=== PATIENT | male | born 1985 | race Caucasian/White ===

== ENCOUNTER 2017-07-19 11:29 | Inpatient (IN) | payer OTHER ==
[~2017-07-19] VITALS: Ht 175.3 cm; Wt 60.9 kg
[2017-07-19 12:44] LABS: CHLORIDE 96 mEq/L (99-109); POTASSIUM 4.3 mEq/L (3.7-5.4); SODIUM 135 mEq/L (136-147)
[2017-07-19 12:46] LABS: HEMATOCRIT 51.4 % (38.0-50.0); HEMOGLOBIN 18.8 G/DL (12.5-16.6); MCH 29.6 PG (29.0-34.0); MCHC 36.6 G/DL (30.0-36.0); MCV 80.9 FL (86-99); PLATELET COUNT 323 K/uL (156-360); RBC DIS.WIDTH-CV 12.8 % (11.8-14.6); RBC DIS.WIDTH-SD 36.7 % (39-53); RED BLOOD COUNT 6.35 M/uL (4.00-5.50); TOTAL PROTEIN 8.8 g/dL (6.4-8.3); WHITE BLOOD COUNT 17.5 K/uL (4.1-10.2)
[2017-07-19 12:48] LABS: TOTAL BILIRUBIN 1.5 mg/dL (0.0-1.0)
[2017-07-19 12:49] LABS: ALKALINE PHOSPHATASE 110 IU/L (3-129)
[2017-07-19 12:50] LABS: CREATININE 1.7 mg/dL (0.6-1.3); GFR ESTIMATE (CALCULATED) 51 mL/min/ (58.99-99999)
[2017-07-19 12:51] LABS: AST (GOT) 13 IU/L (2-34); UREA NITROGEN (BUN) 27 mg/dL (9-23)
[2017-07-19 12:53] LABS: ALT (GPT) 18 IU/L (3-49); LIPASE 20 U/L (1.0-51.0)
[2017-07-19 13:01] LABS: GLUCOSE 708 mg/dL (70-99)
[2017-07-19 13:11] LABS: APPEARANCE CLEAR ((CLEAR)); BILIRUBIN NEGATIVE; BLOOD NEGATIVE; COLOR STRAW ((YELLOW)); GLUCOSE (STRIP) >=500; KETONES 80; LEUKOCYTES NEGATIVE; NITRITE NEGATIVE; PROTEIN (STRIP) NEGATIVE; SPECIFIC GRAVITY 1.036 (1.000-1.030); UCUL ADDED? NO; UROBILINOGEN 0.2 MG/DL (0.2-1.0)
[2017-07-19 14:05] LABS: PHOSPHORUS 4.6 mg/dL (2.5-4.9)
[2017-07-19 14:06] LABS: CARBON DIOXIDE (BICARBONATE) 21.4 MEQ/L (20-31)
[2017-07-19 23:45] VITALS: BP 132/76
[2017-07-20] VITALS (21 sets, daily range): BP systolic 104–139; BP diastolic 56–94
[2017-07-20 01:05] LABS: POTASSIUM 3.8 mEq/L (3.7-5.4)
[2017-07-20 01:06] LABS: MAGNESIUM 2.3 mg/dL (1.3-2.7)
[2017-07-20 01:11] LABS: PHOSPHORUS 3.2 mg/dL (2.5-4.9)
[2017-07-20 01:12] LABS: UREA NITROGEN (BUN) 18 mg/dL (9-23)
[2017-07-20 01:16] LABS: CHLORIDE 112 mEq/L (99-109); GFR ESTIMATE (CALCULATED) > 59 mL/min/ (58.99-99999); GLUCOSE 127 mg/dL (70-99); SODIUM 145 mEq/L (136-147)
[2017-07-20 06:16] LABS: CHLORIDE 106 MEQ/L (99-109); CREATININE 0.8 MG/DL (0.6-1.3); GFR ESTIMATE (CALCULATED) > 59 mL/min/ (58.99-99999); MAGNESIUM 2.1 mg/dl (1.3-2.7); POTASSIUM 3.6 MEQ/L (3.7-5.4); SODIUM 143 MEQ/L (136-147); UREA NITROGEN (BUN) 19 mg/dL (9-23)
[2017-07-20 06:23] LABS: GLUCOSE 213 mg/dL (70-99)
[2017-07-20 08:58] LABS: CHLORIDE 106 MEQ/L (99-109); CREATININE 0.8 MG/DL (0.6-1.3); GFR ESTIMATE (CALCULATED) > 59 mL/min/ (58.99-99999); GLUCOSE 126 mg/dL (70-99); MAGNESIUM 2.1 mg/dl (1.3-2.7); POTASSIUM 3.7 MEQ/L (3.7-5.4); SODIUM 142 MEQ/L (136-147); UREA NITROGEN (BUN) 17 mg/dL (9-23)
[2017-07-20 10:24] LABS: HEMOGLOBIN A1c (GLYCOHEMOGLOB) 11.7 % (Below 5.7)
[2017-07-20 13:53] LABS: CHLORIDE 103 MEQ/L (99-109); CREATININE 0.7 MG/DL (0.6-1.3); GFR ESTIMATE (CALCULATED) > 59 mL/min/ (58.99-99999); GLUCOSE 179 mg/dL (70-99); MAGNESIUM 1.9 mg/dl (1.3-2.7); POTASSIUM 3.3 MEQ/L (3.7-5.4); SODIUM 140 MEQ/L (136-147); UREA NITROGEN (BUN) 14 mg/dL (9-23)
[2017-07-20 15:06] LABS: THYROTROPIN (TSH) 0.83 MIU/L (0.4-5.5)
[2017-07-21 01:45] VITALS: BP 129/79
[2017-07-21 04:47] VITALS: BP 134/80
[2017-07-21 07:25] VITALS: BP 120/74
[2017-07-21 11:06] VITALS: BP 133/77
[2017-07-21 11:52] LABS: CHLORIDE 96 MEQ/L (99-109); CREATININE 0.6 MG/DL (0.6-1.3); GFR ESTIMATE (CALCULATED) > 59 mL/min/ (58.99-99999); GLUCOSE 141 mg/dL (70-99); POTASSIUM 3.7 MEQ/L (3.7-5.4); SODIUM 133 MEQ/L (136-147); UREA NITROGEN (BUN) 12 mg/dL (9-23)
[2017-07-21 12:04] LABS: BASOPHIL (%) 0.1 % (0-1); EOSINOPHIL (%) 0 % (0-5); HEMATOCRIT 42.7 % (38.0-50.0); HEMOGLOBIN 15.2 G/DL (12.5-16.6); IMMATURE GRANULOCYTE (%) 0.2 % (0.0-0.7); LYMPHOCYTE (%) 27.7 % (15-42); LYMPHOCYTE COUNT 2.6 K/uL (1.0-2.8); MCH 28.9 PG (29.0-34.0); MCHC 35.6 G/DL (30.0-36.0); MCV 81.2 FL (86-99); MONOCYTE (%) 8.1 % (3-12); MONOCYTE COUNT 0.8 K/uL (0-0.8); NEUTROPHIL (%) 63.9 % (45-76); NEUTROPHIL COUNT 6.1 K/uL (1.8-6.4); RBC DIS.WIDTH-CV 11.9 % (11.8-14.6); RBC DIS.WIDTH-SD 35.3 % (39-53); RED BLOOD COUNT 5.26 M/uL (4.00-5.50); WHITE BLOOD COUNT 9.5 K/uL (4.1-10.2)
[2017-07-21 12:10] LABS: PLAT.SUFFICIENCY ADEQUATE
[2017-07-21 12:22] LABS: PLATELET COUNT 216 K/uL (156-360)
[2017-07-21 13:33] LABS: ALBUMIN 3.7 G/DL (3.2-4.8); ALKALINE PHOSPHATASE 72 IU/L (3-129); ALT (GPT) 12 IU/L (3-49); AST (GOT) 17 IU/L (2-34); DIRECT BILIRUBIN 0.4 mg/dL (0.0-0.3); LIPASE 16 U/L (1.0-51.0); TOTAL BILIRUBIN 2.7 MG/DL (0.0-1.0); TOTAL PROTEIN 6.1 G/DL (6.4-8.3)
[2017-07-21 15:40] VITALS: BP 125/77
[2017-07-21 19:30] VITALS: BP 111/63
[2017-07-22 00:54] VITALS: BP 108/57
[2017-07-22 03:32] VITALS: BP 108/66
[2017-07-22 07:19] LABS: ALBUMIN 3.5 G/DL (3.2-4.8); ALKALINE PHOSPHATASE 69 IU/L (3-129); ALT (GPT) 11 IU/L (3-49); AST (GOT) 14 IU/L (2-34); CHLORIDE 99 MEQ/L (99-109); CREATININE 0.7 MG/DL (0.6-1.3); GFR ESTIMATE (CALCULATED) > 59 mL/min/ (58.99-99999); GLUCOSE 123 mg/dL (70-99); POTASSIUM 3.3 MEQ/L (3.7-5.4); SODIUM 138 MEQ/L (136-147); UREA NITROGEN (BUN) 14 mg/dL (9-23)
[2017-07-22 07:31] VITALS: BP 120/66
[2017-07-22 10:02] LABS: HDL CHOLESTEROL 40 MG/DL (Desirable>=40); LDL CHOLESTEROL 98 mg/dL (Desirable<100); NON-HDL CHOLESTEROL 109 mg/dL (Desirable<160); TOTAL CHOLESTEROL 149 mg/dL (Desirable<200); TRIGLYCERIDES 53 MG/DL (Normal: <150)
[2017-07-22 15:33] VITALS: BP 99/61
[2017-07-22 23:25] VITALS: BP 110/68
[2017-07-23 07:59] LABS: ALBUMIN 3.6 G/DL (3.2-4.8); ALKALINE PHOSPHATASE 70 IU/L (3-129); ALT (GPT) 12 IU/L (3-49); AST (GOT) 14 IU/L (2-34); CHLORIDE 98 MEQ/L (99-109); CREATININE 0.8 MG/DL (0.6-1.3); GFR ESTIMATE (CALCULATED) > 59 mL/min/ (58.99-99999); GLUCOSE 107 mg/dL (70-99); SODIUM 137 MEQ/L (136-147); TOTAL PROTEIN 6.3 G/DL (6.4-8.3); UREA NITROGEN (BUN) 12 mg/dL (9-23)
[2017-07-23 08:01] LABS: TOTAL BILIRUBIN 1.3 MG/DL (0.0-1.0)
[2017-07-23 09:13] VITALS: BP 104/60
[2017-07-23 17:30] VITALS: BP 113/63
[2017-07-23 23:57] VITALS: BP 114/67
[2017-07-24 07:53] VITALS: BP 117/59
[2017-07-24 16:39] VITALS: BP 109/57
[2017-07-25 00:01] VITALS: BP 104/65
[2017-07-25 07:26] VITALS: BP 100/59
[2017-07-25] MEDS ORDERED: EASY TOUCH HYP1 EA10 MC (10:28)
[2017-07-25] MEDS ORDERED: NOVOLOG MI100 UNIT/3 SC (10:28)
== END 2017-07-25 13:55 | disposition home or self-care (01) | DRG 638 ==
LOC: EME 11:29 → 4WEST 16:34 → EDOF 16:34 → 5SOUTH 16:34 → ENRESERV 16:35 → 4WEST 23:37 → ENRESERV 07-20 15:59 → 4WEST 07-20 16:49 → 5SOUTH 07-20 19:30 → ENPENDDIS 07-25 12:12 → 5SOUTH 07-25 13:55
PROVIDERS: Emergency Medicine; Hospitalist; Internal Medicine; Physician Assistant
DX: E10.10 Type 1 diabetes mellitus with ketoacidosis without coma (principal); R17 Unspecified jaundice; Z68.1 Body mass index [BMI] 19.9 or less, adult; F43.23 Adjustment disorder with mixed anxiety and depressed mood; F60.1 Schizoid personality disorder; Z56.0 Unemployment, unspecified; R63.6 Underweight; Z79.4 Long term (current) use of insulin
CPT/HCPCS: 76700; 80048; 80048 91; 80053; 80061; 80076; 81003; 82010; 82803; 82948; 83036; 83690; 83735; 84100; 84443; 85025; 85027; 87502; 87641; 90686; 93005; 99281; 99285; J1815; J2405; J3480; J7030; J7050

== ENCOUNTER 2017-10-06 09:23 | Emergency (ER) | payer OTHER ==
[~2017-10-06] VITALS: Ht 175.3 cm; Wt 65.5 kg
[~2017-10-06 09:23] MED LIST: EASY TOUCH HYP1 EA10 MC; NOVOLOG MI100 UNIT/3 SC
[2017-10-06 10:18] LABS: CARBON DIOXIDE (BICARBONATE) 29.8 MEQ/L (20-31)
[2017-10-06 10:20] LABS: HEMATOCRIT 46.2 % (38.0-50.0); HEMOGLOBIN 16.6 G/DL (12.5-16.6); MCH 30.2 PG (29.0-34.0); MCHC 35.9 G/DL (30.0-36.0); PLATELET COUNT 232 K/uL (156-360); RBC DIS.WIDTH-CV 12.4 % (11.8-14.6); RBC DIS.WIDTH-SD 37.8 % (39-53); WHITE BLOOD COUNT 9.9 K/uL (4.1-10.2)
[2017-10-06 10:29] LABS: ALBUMIN 4.8 g/dL (3.2-4.8); CHLORIDE 101 mEq/L (99-109); POTASSIUM 4.5 mEq/L (3.7-5.4); SODIUM 139 mEq/L (136-147)
[2017-10-06 10:31] LABS: GLUCOSE 202 mg/dL (70-99)
[2017-10-06 10:32] LABS: TOTAL PROTEIN 7.8 g/dL (6.4-8.3)
[2017-10-06 10:33] LABS: TOTAL BILIRUBIN 1.2 mg/dL (0.0-1.0)
[2017-10-06 10:35] LABS: ALKALINE PHOSPHATASE 77 IU/L (3-129); CREATININE 0.9 mg/dL (0.6-1.3); GFR ESTIMATE (CALCULATED) > 59 mL/min/ (58.99-99999)
[2017-10-06 10:36] LABS: UREA NITROGEN (BUN) 13 mg/dL (9-23)
[2017-10-06 10:37] LABS: AST (GOT) 17 IU/L (2-34)
[2017-10-06 10:38] LABS: ALT (GPT) 16 IU/L (3-49); LIPASE 9 U/L (1.0-51.0)
[2017-10-06 11:44] LABS: APPEARANCE CLEAR ((CLEAR)); BILIRUBIN NEGATIVE; BLOOD NEGATIVE; COLOR YELLOW ((YELLOW)); GLUCOSE (STRIP) NEGATIVE; KETONES 80; LEUKOCYTES NEGATIVE; NITRITE NEGATIVE; PROTEIN (STRIP) 30; SPECIFIC GRAVITY 1.026 (1.000-1.030); UROBILINOGEN 0.2 MG/DL (0.2-1.0)
[2017-10-06] MEDS ORDERED: ZOFRAN ODT4 MG PO (13:05)
[2017-10-06 14:33] VITALS: BP 120/72
== END 2017-10-06 14:34 | disposition home or self-care (01) ==
LOC: EME 09:23
PROVIDERS: Nurse Practitioner Family
DX: R11.2 Nausea with vomiting, unspecified (principal); R19.7 Diarrhea, unspecified; E11.65 Type 2 diabetes mellitus with hyperglycemia; Z79.4 Long term (current) use of insulin
CPT/HCPCS: 80053; 81003; 82803; 82948; 83690; 85027; 99281; 99285; J2405; J7030

== ENCOUNTER 2017-10-11 00:35 | Emergency (ER) | payer OTHER ==
[~2017-10-11] VITALS: Ht 175.3 cm; Wt 63.9 kg
[~2017-10-11 00:35] MED LIST changes: +ZOFRAN ODT4 MG PO
[2017-10-11 01:24] LABS: HEMATOCRIT 45.1 % (38.0-50.0); HEMOGLOBIN 16.6 G/DL (12.5-16.6); MCH 30.4 PG (29.0-34.0); MCHC 36.8 G/DL (30.0-36.0); MCV 82.6 FL (86-99); PLATELET COUNT 278 K/uL (156-360); RBC DIS.WIDTH-SD 36.2 % (39-53); RED BLOOD COUNT 5.46 M/uL (4.00-5.50); WHITE BLOOD COUNT 9.7 K/uL (4.1-10.2)
[2017-10-11 01:36] LABS: ALBUMIN 4.5 g/dL (3.2-4.8); CHLORIDE 99 mEq/L (99-109); SODIUM 140 mEq/L (136-147)
[2017-10-11 01:37] LABS: POTASSIUM 3.5 mEq/L (3.7-5.4)
[2017-10-11 01:38] LABS: GLUCOSE 130 mg/dL (70-99); TOTAL PROTEIN 7.6 g/dL (6.4-8.3)
[2017-10-11 01:40] LABS: TOTAL BILIRUBIN 1.4 mg/dL (0.0-1.0)
[2017-10-11 01:42] LABS: ALKALINE PHOSPHATASE 68 IU/L (3-129); GFR ESTIMATE (CALCULATED) > 59 mL/min/ (58.99-99999)
[2017-10-11 01:43] LABS: AST (GOT) 15 IU/L (2-34); UREA NITROGEN (BUN) 11 mg/dL (9-23)
[2017-10-11 01:44] LABS: DIRECT BILIRUBIN 0.6 mg/dL (0.0-0.3)
[2017-10-11 01:45] LABS: ALT (GPT) 11 IU/L (3-49); LIPASE 20 U/L (1.0-51.0)
[2017-10-11 04:04] LABS: BASE EXCESS 1.3 mEq/L (-3 to +3); BICARBONATE 25.9 mEq/L (22-26); CARBOXY HGB 1.6 % (0-5); PCO2 40 mm Hg (35-45); PO2 96 mm Hg (80-100); pH 7.42 (7.35-7.45)
[2017-10-11 04:06] LABS: COMMENTS - BLOOD GASES C+A+; DEVICE ROOM AIR; FI02 21 %; SITE RR
[2017-10-11 04:32] VITALS: BP 111/77
== END 2017-10-11 04:33 | disposition home or self-care (01) ==
LOC: EME 00:35
PROVIDERS: Emergency Medicine; Physician Assistant
DX: K52.9 Noninfective gastroenteritis and colitis, unspecified (principal); E86.0 Dehydration; K59.00 Constipation, unspecified; E11.9 Type 2 diabetes mellitus without complications; Z79.84 Long term (current) use of oral hypoglycemic drugs
CPT/HCPCS: 36600; 80048; 80076; 81003; 82803; 83690; 85027; 99281; 99284; J2405; J2550; J7030

== ENCOUNTER 2017-10-12 21:05 | Emergency (ER) | payer OTHER ==
[~2017-10-12] VITALS: Ht 175.3 cm; Wt 63.2 kg
[2017-10-12 21:48] LABS: HEMATOCRIT 45.2 % (38.0-50.0); HEMOGLOBIN 16.7 G/DL (12.5-16.6); MCH 30.5 PG (29.0-34.0); MCHC 36.9 G/DL (30.0-36.0); MCV 82.5 FL (86-99); PLATELET COUNT 286 K/uL (156-360); RBC DIS.WIDTH-CV 11.9 % (11.8-14.6); RBC DIS.WIDTH-SD 35.8 % (39-53); RED BLOOD COUNT 5.48 M/uL (4.00-5.50); WHITE BLOOD COUNT 10.4 K/uL (4.1-10.2)
[2017-10-12 21:53] LABS: CHLORIDE 98 mEq/L (99-109); POTASSIUM 3.1 mEq/L (3.7-5.4); SODIUM 139 mEq/L (136-147)
[2017-10-12 21:55] LABS: GLUCOSE 136 mg/dL (70-99)
[2017-10-12 21:59] LABS: CREATININE 0.9 mg/dL (0.6-1.3); GFR ESTIMATE (CALCULATED) > 59 mL/min/ (58.99-99999)
[2017-10-12 22:00] LABS: UREA NITROGEN (BUN) 10 mg/dL (9-23)
[2017-10-12 23:20] LABS: LIPASE 36 U/L (1.0-51.0)
[2017-10-13] MEDS ORDERED: REGLAN10 MG PO (00:10)
[2017-10-13 01:08] VITALS: BP 118/83
== END 2017-10-13 01:09 | disposition home or self-care (01) ==
LOC: EME 21:05
DX: R11.2 Nausea with vomiting, unspecified (principal); R10.9 Unspecified abdominal pain; E87.6 Hypokalemia; E11.9 Type 2 diabetes mellitus without complications; Z79.4 Long term (current) use of insulin
CPT/HCPCS: 74177; 80048; 81003; 83690; 85027; 99281; 99284; J2405; J2765; J7030

== ENCOUNTER 2017-10-15 00:07 | Inpatient (IN) | payer OTHER ==
[~2017-10-15] VITALS: Ht 175.3 cm; Wt 56.6 kg
[~2017-10-15 00:07] MED LIST changes: +REGLAN10 MG PO
[2017-10-15 00:52] LABS: CARBON DIOXIDE (BICARBONATE) 31.1 MEQ/L (20-31)
[2017-10-15 00:59] LABS: ALBUMIN 4.6 g/dL (3.2-4.8); CHLORIDE 99 mEq/L (99-109); POTASSIUM 3.4 mEq/L (3.7-5.4); SODIUM 138 mEq/L (136-147)
[2017-10-15 01:00] LABS: MAGNESIUM 2.1 mg/dL (1.3-2.7)
[2017-10-15 01:01] LABS: HEMATOCRIT 44.2 % (38.0-50.0); HEMOGLOBIN 16.4 G/DL (12.5-16.6); MCH 30.5 PG (29.0-34.0); MCHC 37.1 G/DL (30.0-36.0); MCV 82.2 FL (86-99); PLATELET COUNT 267 K/uL (156-360); RBC DIS.WIDTH-SD 36.1 % (39-53); RED BLOOD COUNT 5.38 M/uL (4.00-5.50); WHITE BLOOD COUNT 10.4 K/uL (4.1-10.2)
[2017-10-15 01:02] LABS: GLUCOSE 113 mg/dL (70-99); TOTAL PROTEIN 7.7 g/dL (6.4-8.3)
[2017-10-15 01:03] LABS: TOTAL BILIRUBIN 1.5 mg/dL (0.0-1.0)
[2017-10-15 01:04] LABS: SERUM ETHYL ALCOHOL < 10 mg/dL
[2017-10-15 01:05] LABS: ALKALINE PHOSPHATASE 66 IU/L (3-129); CREATININE 0.9 mg/dL (0.6-1.3); GFR ESTIMATE (CALCULATED) > 59 mL/min/ (58.99-99999); PHOSPHORUS 2.7 mg/dL (2.5-4.9)
[2017-10-15 01:06] LABS: UREA NITROGEN (BUN) 10 mg/dL (9-23)
[2017-10-15 01:07] LABS: AST (GOT) 18 IU/L (2-34)
[2017-10-15 01:08] LABS: ALT (GPT) 13 IU/L (3-49)
[2017-10-15 01:09] LABS: LIPASE 22 U/L (1.0-51.0)
[2017-10-15] MEDS ORDERED: HUMALOG MI100 UNIT/6 SC (01:30)
[2017-10-15 02:12] LABS: APPEARANCE CLEAR ((CLEAR)); BILIRUBIN NEGATIVE; BLOOD NEGATIVE; COLOR YELLOW ((YELLOW)); GLUCOSE (STRIP) NEGATIVE; KETONES 20; LEUKOCYTES NEGATIVE; NITRITE NEGATIVE; PROTEIN (STRIP) NEGATIVE; SPECIFIC GRAVITY 1.012 (1.000-1.030); UCUL ADDED? NO
[2017-10-15 02:22] LABS: AMPHETAMINE NEGATIVE (500 ng/mL); BARBITURATES NEGATIVE (200 ng/mL); BENZODIAZEPINES NEGATIVE (150 ng/mL); BUPRENORPHINE NEGATIVE (10 ng/mL); COCAINE NEGATIVE (150 ng/mL); METHADONE NEGATIVE (200 ng/mL); METHAMPHETAMINE NEGATIVE (500 ng/mL); OPIATES (MORPHINE) NEGATIVE (100 ng/mL); OXYCODONE NEGATIVE (100 ng/mL); PHENCYCLIDINE NEGATIVE (25 ng/mL); PROPOXYPHENE NEGATIVE (300 ng/mL); THC CANNABINOIDS NEGATIVE (50 ng/mL); TRICYCLIC ANTIDEPRESSANTS NEGATIVE (300 ng/mL)
[2017-10-15 03:00] VITALS: BP 128/70
[2017-10-15 07:52] VITALS: BP 121/69
[2017-10-15 11:44] VITALS: BP 127/87
[2017-10-15 16:31] VITALS: BP 131/67
[2017-10-15 19:00] VITALS: BP 121/70
[2017-10-16 03:00] VITALS: BP 107/64
[2017-10-16 06:05] LABS: BASOPHIL (%) 0.8 % (0-1); BASOPHIL COUNT 0.1 K/uL (0-0.1); EOSINOPHIL COUNT 0.1 K/uL (0-0.3); HEMATOCRIT 42.9 % (38.0-50.0); HEMOGLOBIN 15.2 G/DL (12.5-16.6); IMMATURE GRANULOCYTE (%) 0.1 % (0.0-0.7); LYMPHOCYTE (%) 46.6 % (15-42); LYMPHOCYTE COUNT 3.6 K/uL (1.0-2.8); MCH 29.2 PG (29.0-34.0); MCHC 35.4 G/DL (30.0-36.0); MCV 82.5 FL (86-99); MONOCYTE (%) 8.5 % (3-12); MONOCYTE COUNT 0.7 K/uL (0-0.8); NEUTROPHIL COUNT 3.3 K/uL (1.8-6.4); PLATELET COUNT 240 K/uL (156-360); RBC DIS.WIDTH-SD 36.5 % (39-53); WHITE BLOOD COUNT 7.8 K/uL (4.1-10.2)
[2017-10-16 06:27] LABS: CHLORIDE 102 MEQ/L (99-109); CREATININE 0.8 MG/DL (0.6-1.3); GFR ESTIMATE (CALCULATED) > 59 mL/min/ (58.99-99999); POTASSIUM 3.1 MEQ/L (3.7-5.4); SODIUM 141 MEQ/L (136-147); UREA NITROGEN (BUN) 5 mg/dL (9-23)
[2017-10-16 06:29] LABS: GLUCOSE 81 mg/dL (70-99)
[2017-10-16 08:19] VITALS: BP 110/67
[2017-10-16 11:55] VITALS: BP 114/62
[2017-10-16] MEDS ORDERED: REGLAN10 MG PO (14:56)
== END 2017-10-16 15:40 | disposition home or self-care (01) | DRG 74 ==
LOC: EME 00:07 → EDOF 01:59 → ENRESERV 01:59 → 5WEST 02:54 → ENPENDDIS 10-16 → 5WEST 10-16 15:40
PROVIDERS: Emergency Medicine; Hospitalist; Internal Medicine
DX: E10.43 Type 1 diabetes mellitus with diabetic autonomic (poly)neuropathy (principal); K31.84 Gastroparesis; R11.2 Nausea with vomiting, unspecified; T38.3X5A Adverse effect of insulin and oral hypoglycemic [antidiabetic] drugs, initial encounter; E87.6 Hypokalemia; F43.20 Adjustment disorder, unspecified; Z79.4 Long term (current) use of insulin; Z83.3 Family history of diabetes mellitus
CPT/HCPCS: 74177; 80048; 80053; 81003; 82803; 82948; 83605; 83690; 83735; 84100; 85025; 85027; 87493; 99281; 99284; 99285; G0480; J0780; J1815; J2405; J2765; J7030; J7120; S0028

== ENCOUNTER 2017-10-17 19:52 | Emergency (ER) | payer OTHER ==
[~2017-10-17] VITALS: Ht 175.3 cm; Wt 62.7 kg
[~2017-10-17 19:52] MED LIST changes: +HUMALOG MI100 UNIT/6 SC
[2017-10-17 20:30] LABS: HEMATOCRIT 46.4 % (38.0-50.0); MCHC 36.6 G/DL (30.0-36.0); MCV 81.8 FL (86-99); PLATELET COUNT 284 K/uL (156-360); RBC DIS.WIDTH-CV 12.1 % (11.8-14.6); RBC DIS.WIDTH-SD 36.4 % (39-53); RED BLOOD COUNT 5.67 M/uL (4.00-5.50); WHITE BLOOD COUNT 8.4 K/uL (4.1-10.2)
[2017-10-17 20:34] LABS: ALBUMIN 4.7 g/dL (3.2-4.8)
[2017-10-17 20:35] LABS: CHLORIDE 101 mEq/L (99-109); POTASSIUM 3.5 mEq/L (3.7-5.4); SODIUM 141 mEq/L (136-147)
[2017-10-17 20:37] LABS: TOTAL PROTEIN 7.8 g/dL (6.4-8.3)
[2017-10-17 20:39] LABS: TOTAL BILIRUBIN 1.4 mg/dL (0.0-1.0)
[2017-10-17 20:40] LABS: ALKALINE PHOSPHATASE 67 IU/L (3-129)
[2017-10-17 20:41] LABS: CREATININE 0.9 mg/dL (0.6-1.3); GFR ESTIMATE (CALCULATED) > 59 mL/min/ (58.99-99999)
[2017-10-17 20:42] LABS: AST (GOT) 19 IU/L (2-34); UREA NITROGEN (BUN) 5 mg/dL (9-23)
[2017-10-17 20:43] LABS: ALT (GPT) 14 IU/L (3-49)
[2017-10-17 20:45] LABS: GLUCOSE 147 mg/dL (70-99)
[2017-10-17 22:52] LABS: CARBON DIOXIDE (BICARBONATE) 29.3 MEQ/L (20-31)
[2017-10-18 00:05] LABS: APPEARANCE SL.HAZY ((CLEAR)); BILIRUBIN NEGATIVE; BLOOD NEGATIVE; COLOR YELLOW ((YELLOW)); GLUCOSE (STRIP) NEGATIVE; KETONES 80; LEUKOCYTES NEGATIVE; NITRITE NEGATIVE; PROTEIN (STRIP) NEGATIVE; SPECIFIC GRAVITY 1.018 (1.000-1.030)
[2017-10-18 00:18] LABS: BACTERIA RARE /HPF; EPITHELIAL CELLS NONE SEEN /HPF; MUCUS 4+ /LPF; RED BLOOD CELLS 0-5 /HPF (0-5); UCUL ADDED? NO; WHITE BLOOD CELLS 0-5 /HPF (0-5)
[2017-10-18] MEDS ORDERED: PHENERGAN25 MG PR (00:38)
[2017-10-18 00:43] VITALS: BP 112/68
== END 2017-10-18 00:45 | disposition home or self-care (01) ==
LOC: EME 19:52
PROVIDERS: Emergency Medicine
DX: R11.2 Nausea with vomiting, unspecified (principal); E11.9 Type 2 diabetes mellitus without complications; E86.0 Dehydration; Z79.4 Long term (current) use of insulin; Z91.14 Patient's other noncompliance with medication regimen
CPT/HCPCS: 80053; 81003; 82010; 82803; 82948; 85027; 99281; 99285; J2765; J7030

== ENCOUNTER 2017-10-20 16:13 | Emergency (ER) | payer OTHER ==
[~2017-10-20] VITALS: Ht 175.3 cm; Wt 60.9 kg
[~2017-10-20 16:13] MED LIST changes: +PHENERGAN25 MG PR
[2017-10-20 18:23] LABS: CARBON DIOXIDE (BICARBONATE) 30.6 MEQ/L (20-31); HEMATOCRIT 47.3 % (38.0-50.0); HEMOGLOBIN 17.4 G/DL (12.5-16.6); MCH 30.2 PG (29.0-34.0); MCHC 36.8 G/DL (30.0-36.0); MCV 82.1 FL (86-99); PLATELET COUNT 268 K/uL (156-360); RBC DIS.WIDTH-CV 12.2 % (11.8-14.6); RBC DIS.WIDTH-SD 36.4 % (39-53); RED BLOOD COUNT 5.76 M/uL (4.00-5.50); WHITE BLOOD COUNT 9.1 K/uL (4.1-10.2)
[2017-10-20 18:26] LABS: ALBUMIN 4.5 g/dL (3.2-4.8); CHLORIDE 103 mEq/L (99-109); MAGNESIUM 2.3 mg/dL (1.3-2.7); POTASSIUM 3.6 mEq/L (3.7-5.4); SODIUM 140 mEq/L (136-147)
[2017-10-20 18:28] LABS: GLUCOSE 118 mg/dL (70-99); TOTAL PROTEIN 7.7 g/dL (6.4-8.3)
[2017-10-20 18:32] LABS: ALKALINE PHOSPHATASE 72 IU/L (3-129); CREATININE 0.8 mg/dL (0.6-1.3); GFR ESTIMATE (CALCULATED) > 59 mL/min/ (58.99-99999)
[2017-10-20 18:33] LABS: UREA NITROGEN (BUN) 6 mg/dL (9-23)
[2017-10-20 18:34] LABS: AST (GOT) 13 IU/L (2-34)
[2017-10-20 18:35] LABS: ALT (GPT) 13 IU/L (3-49); LIPASE 18 U/L (1.0-51.0)
[2017-10-20 18:40] LABS: PHOSPHORUS 3.8 mg/dL (2.5-4.9); TOTAL BILIRUBIN 1.1 mg/dL (0.0-1.0)
[2017-10-20 19:51] LABS: APPEARANCE SL.HAZY ((CLEAR)); BILIRUBIN NEGATIVE; BLOOD NEGATIVE; COLOR YELLOW ((YELLOW)); GLUCOSE (STRIP) NEGATIVE; KETONES 20; LEUKOCYTES NEGATIVE; NITRITE NEGATIVE; PROTEIN (STRIP) 30; SPECIFIC GRAVITY 1.016 (1.000-1.030)
[2017-10-20 19:59] LABS: BACTERIA RARE /HPF; EPITHELIAL CELLS NONE SEEN /HPF; HYALINE CASTS 0-5 /LPF; MUCUS 3+ /LPF; RED BLOOD CELLS 0-5 /HPF (0-5); WHITE BLOOD CELLS 0-5 /HPF (0-5)
[2017-10-20 20:28] LABS: AMPHETAMINE NEGATIVE (500 ng/mL); BARBITURATES NEGATIVE (200 ng/mL); BENZODIAZEPINES NEGATIVE (150 ng/mL); BUPRENORPHINE NEGATIVE (10 ng/mL); COCAINE NEGATIVE (150 ng/mL); METHADONE NEGATIVE (200 ng/mL); METHAMPHETAMINE NEGATIVE (500 ng/mL); OPIATES (MORPHINE) NEGATIVE (100 ng/mL); OXYCODONE NEGATIVE (100 ng/mL); PHENCYCLIDINE NEGATIVE (25 ng/mL); PROPOXYPHENE NEGATIVE (300 ng/mL); THC CANNABINOIDS NEGATIVE (50 ng/mL); TRICYCLIC ANTIDEPRESSANTS NEGATIVE (300 ng/mL)
[2017-10-20] MEDS ORDERED: REGLAN10 MG PO (21:32)
[2017-10-20 21:51] VITALS: BP 121/85
== END 2017-10-20 21:55 | disposition home or self-care (01) ==
LOC: EME 16:13
PROVIDERS: Emergency Medicine
DX: R11.2 Nausea with vomiting, unspecified (principal); E11.9 Type 2 diabetes mellitus without complications; Z79.4 Long term (current) use of insulin
CPT/HCPCS: 80053; 81003; 82803; 82948; 83690; 83735; 83930; 84100; 85027; 93005; 99281; 99285; J1200; J2765; J7030; Q0169

== ENCOUNTER → 2017-11-19 | Outpatient (CLI) | payer OTHER ==
[~2017-11-19] VITALS: Ht 175.3 cm; Wt 63.5 kg
[~2017-11-19] MED LIST changes: +AMARYL2 MG PO
== END | disposition home or self-care (01) ==
LOC: AMB 09:47
PROVIDERS: Internal Medicine
PROC: 0DB68ZX Excision of Stomach, Via Natural or Artificial Opening Endoscopic, Diagnostic (ICD-10-PCS; principal; 2017-11-19)
DX: K29.70 Gastritis, unspecified, without bleeding (principal); E10.65 Type 1 diabetes mellitus with hyperglycemia; E78.5 Hyperlipidemia, unspecified; F60.1 Schizoid personality disorder; Z83.3 Family history of diabetes mellitus; Z82.49 Family history of ischemic heart disease and other diseases of the circulatory system
CPT/HCPCS: 82948; 88305; 88342 TC; J2250

== ENCOUNTER 2017-12-13 06:13 | Emergency (ER) | payer OTHER ==
[~2017-12-13] VITALS: Ht 175.3 cm; Wt 67.0 kg
[2017-12-13 07:41] LABS: HEMATOCRIT 44.4 % (38.0-50.0); HEMOGLOBIN 15.7 G/DL (12.5-16.6); MCH 29.7 PG (29.0-34.0); MCHC 35.4 G/DL (30.0-36.0); MCV 84.1 FL (86-99); PLATELET COUNT 216 K/uL (156-360); RBC DIS.WIDTH-CV 12.7 % (11.8-14.6); RBC DIS.WIDTH-SD 38.7 % (39-53); RED BLOOD COUNT 5.28 M/uL (4.00-5.50)
[2017-12-13 07:53] LABS: ALBUMIN 4.4 g/dL (3.2-4.8); CHLORIDE 104 mEq/L (99-109); POTASSIUM 3.8 mEq/L (3.7-5.4); SODIUM 141 mEq/L (136-147)
[2017-12-13 07:55] LABS: GLUCOSE 226 mg/dL (70-99); TOTAL PROTEIN 7.9 g/dL (6.4-8.3)
[2017-12-13 07:57] LABS: TOTAL BILIRUBIN 0.7 mg/dL (0.0-1.0)
[2017-12-13 07:59] LABS: ALKALINE PHOSPHATASE 79 IU/L (3-129); GFR ESTIMATE (CALCULATED) > 59 mL/min/ (58.99-99999)
[2017-12-13 08:00] LABS: UREA NITROGEN (BUN) 14 mg/dL (9-23)
[2017-12-13 08:01] LABS: AST (GOT) 19 IU/L (2-34)
[2017-12-13 08:02] LABS: ALT (GPT) 21 IU/L (3-49)
[2017-12-13] MEDS ORDERED: REGLAN10 MG PO (09:16)
[2017-12-13] MEDS ORDERED: BENTYL20 MG PO (09:16)
[2017-12-13] MEDS ORDERED: ZOFRAN ODT4 MG PO (09:16)
[2017-12-13 09:30] LABS: APPEARANCE CLEAR ((CLEAR)); BILIRUBIN NEGATIVE; BLOOD NEGATIVE; COLOR YELLOW ((YELLOW)); GLUCOSE (STRIP) 150; KETONES 20; LEUKOCYTES NEGATIVE; NITRITE NEGATIVE; PROTEIN (STRIP) NEGATIVE; SPECIFIC GRAVITY 1.019 (1.000-1.030); UCUL ADDED? NO; UROBILINOGEN 0.2 MG/DL (0.2-1.0)
[2017-12-13 09:40] LABS: AMPHETAMINE NEGATIVE (500 ng/mL); BARBITURATES NEGATIVE (200 ng/mL); BENZODIAZEPINES NEGATIVE (150 ng/mL); BUPRENORPHINE NEGATIVE (10 ng/mL); COCAINE NEGATIVE (150 ng/mL); METHADONE NEGATIVE (200 ng/mL); METHAMPHETAMINE NEGATIVE (500 ng/mL); OPIATES (MORPHINE) NEGATIVE (100 ng/mL); OXYCODONE PRESUMPTIVE POSITIVE (100 ng/mL); PHENCYCLIDINE NEGATIVE (25 ng/mL); PROPOXYPHENE NEGATIVE (300 ng/mL); THC CANNABINOIDS NEGATIVE (50 ng/mL); TRICYCLIC ANTIDEPRESSANTS NEGATIVE (300 ng/mL)
[2017-12-13 10:15] VITALS: BP 125/87
== END 2017-12-13 10:15 | disposition home or self-care (01) ==
LOC: EME 06:13
PROVIDERS: Nurse Practitioner Family
DX: R11.2 Nausea with vomiting, unspecified (principal); R10.32 Left lower quadrant pain; F11.90 Opioid use, unspecified, uncomplicated; E11.9 Type 2 diabetes mellitus without complications; Z79.4 Long term (current) use of insulin
CPT/HCPCS: 80053; 81003; 82948; 85027; 99281; 99285; J2405; J2765; J7030